=== PATIENT | female | born 1970 | race Caucasian/White ===

== ENCOUNTER 2017-09-13 19:54 | Emergency (ER) | payer BC, OTHER ==
[2017-09-13 20:16] VITALS: BP 122/77
--- NOTE | 2017-09-13 20:16 | UC ---
Skin Complaint HPI - HPI Summary HPI Summary: PT presents with painful rash to left flank. She tells me that for the last 2-3 days she has had a burning type pain on her left lower side and left flank. Last night she noticed some red blisters begin to appear in this region and they have gotten progressively worse since that time. She denies fever, chills, recent illness, bleeding or drainage from the site. - History of Current Complaint Chief Complaint: UCSkin Time Seen by Provider: 09/13/17 20:16 Stated Complaint: RASH Hx Obtained From: Patient Hx Last Menstrual Period: 09/05/2017 Onset/Duration: Sudden Onset Timing: Constant Onset Severity: Mild Current Severity: Mild Pain Intensity: 3 Pain Scale Used: 0-10 Numeric - Allergy/Home Medications Allergies/Adverse Reactions: Allergies Allergy/AdvReac Type Severity Reaction Status Date / Time No Known Allergies Allergy Verified 09/13/17 20:09 Home Medications: Home Medications Topiramate [Topamax] 75 mg PO QAM 09/13/17 [History Confirmed 09/13/17] Topiramate [Topamax] 100 mg PO QPM 09/13/17 [History Confirmed 09/13/17] Review of Systems Constitutional: Negative Skin: Rash - Left flank Respiratory: Negative Cardiovascular: Negative Gastrointestinal: Negative Genitourinary: Negative Neurovascular: Negative Musculoskeletal: Negative Neurological: Negative Psychological: Negative All Other Systems Reviewed And Are Negative: Yes PMH/Surg Hx/FS Hx/Imm Hx Previously Healthy: Yes - Surgical History Surgical History: None Surgery Procedure, Year, and Place: MASS REMOVED FROM BREAST HIGH INTO RIGHT UNDERARM 2014 - Family History Known Family History: Positive: None - Social History Occupation: Employed Full-time Lives: With Family Alcohol Use: None Substance Use Type: None Smoking Status (MU): Never Smoked Tobacco Physical Exam Triage Information Reviewed: Yes Appearance: Well-Appearing, No Pain Distress, Well-Nourished Vital Signs: Initial Vital Signs Temp 97.9 F 09/13/17 20:11 Pulse 71 09/13/17 20:11 Resp 18 09/13/17 20:11 BP 122/77 09/13/17 20:11 Pulse Ox 100 09/13/17 20:11 Vital Signs Reviewed: Yes Neck: Positive: Supple, Nontender, No Lymphadenopathy Respiratory: Positive: Lungs clear, Normal breath sounds, No respiratory distress, No accessory muscle use Cardiovascular: Positive: RRR, No Murmur, Pulses Normal Neurological: Positive: Alert Psychological: Positive: Age Appropriate Behavior Skin: Positive: Other - On the lower left midaxillary line and left flank there are numerous erythematous blister-like lesions that are TTP. These lesions appear to follow T12 or L1 dermatome and do not cross the midline. No drainage, bleeding, or streaking appreciated. Course/Dx - Course Course Of Treatment: Suspect shingles. Rx for valacyclovir and gabapentin. - Diagnoses Provider Diagnoses: Shingles left flank Discharge - Discharge Plan Condition: Stable Disposition: HOME Prescriptions: Gabapentin CAP(*) [Neurontin 100 mg CAP(*)] 100 mg PO TID #21 cap ValACYclovir (*) [Valtrex 1 GM(*)] 1 gm PO TID #21 tab Patient Education Materials: Shingles (ED) Referrals: Pamela Hernández MD [Primary Care Provider] - Additional Instructions: If you develop a fever, shortness of breath, chest pain, new or worsening symptoms - please call your PCP or go to the ED. Images Front/Back of Body, Lg (Mayes): 1 - lesions 2 - lesions
[2017-09-13] MEDS ORDERED: Acyclovir* 200 MG CAP PO ONE (20:34)
== END 2017-09-13 21:00 | disposition home or self-care (01) ==
LOC: UCEAST 19:54
DX: B02.9 Zoster without complications (principal)
CPT/HCPCS: 99212; A9270-GY; G0463

== ENCOUNTER 2018-01-27 20:58 | Emergency (ER) | payer BC, OTHER ==
[2018-01-27] MEDS ORDERED: Metoclopramide IV* 5 MG/ML 2 ML VIAL IV SLOW PU ONE (22:42)
[2018-01-27] MEDS ORDERED: diPHENhydraMINE IV* 50 MG/ML 1 ml VIAL (BENADRYL) IV ONE (22:42)
[2018-01-27] MEDS ORDERED: Morphine VIAL* 4 MG/ML VIAL (1 ml vial) IV ONE (22:42)
[2018-01-27] MEDS ORDERED: Dexamethasone IV* 4 MG/ML 1 ML (4 MG) IV SLOW PU ONE (22:43)
[2018-01-27] MEDS ORDERED: NS 0.9% 1000 ML* 1,000 ML IV ONE (22:43)
--- NOTE | 2018-01-28 00:23 | ED ---
Gris Alonzo Emily, scribed for Katherine Gee MD on 01/27/18 at 2229 . Headache - HPI Summary HPI Summary: This patient is a 47 year old F presenting to [facility] accompanied by mother with a chief complaint of diffuse migraine-like headache that began 9 days ago. The patient rates the pain 9/10 in severity. Pt reports that her symptoms were not alleviated by her usual medications. Patient reports nausea. Patient denies fever. Pt reports that she has a history of migraines and gets migraines that last this long about once a year. - History Of Current Complaint Chief Complaint: EDHeadache Stated Complaint: HEADACHE Time Seen by Provider: 01/27/18 22:22 Hx Obtained From: Patient Hx Last Menstrual Period: 09/05/2017 Onset/Duration: Sudden Onset, Started weeks ago, Still Present Initially Headache Was: Severe Currently Pain Is: Current Pain Scale(0-10)= - 9, Severe Timing: Constant Character: Migraine Aggravating Factor: Nothing Allevating Factors: Nothing Associated Signs And Symptoms: Nausea, Other (Noted In Comments) - Negative fever - Allergies/Home Medications Allergies/Adverse Reactions: Allergies Allergy/AdvReac Type Severity Reaction Status Date / Time No Known Allergies Allergy Verified 09/13/17 20:09 PMH/Surg Hx/FS Hx/Imm Hx Previously Healthy: No Endocrine/Hematology History: Denies: Hx Diabetes Cardiovascular History: Denies: Hx Hypertension, Hx Pacemaker/ICD History: Denies: Hx Renal Disease Sensory History: Denies: Hx Hearing Aid Neurological History: Reports: Hx Migraine Psychiatric History: Denies: Hx Panic Disorder - Cancer History Hx Chemotherapy: No Hx Radiation Therapy: No - Surgical History Surgery Procedure, Year, and Place: MASS REMOVED FROM BREAST HIGH INTO RIGHT UNDERARM 2014 Infectious Disease History: Yes Infectious Disease History: Denies: Traveled Outside the [place] in Last 30 Days - Family History Known Family History: Positive: Other - Breast CA - Social History Occupation: Employed Full-time Lives: With Family Alcohol Use: None Hx Substance Use: No Substance Use Type: Reports: None Hx Tobacco Use: No Smoking Status (MU): Never Smoked Tobacco Review of Systems Negative: Fever Positive: Nausea Positive: Headache All Other Systems Reviewed And Are Negative: Yes Physical Exam - Summary Physical Exam Summary: VITAL SIGNS: Reviewed. GENERAL: Patient is a well-developed and nourished female who is lying comfortable in the stretcher. Patient is not in any acute respiratory distress. HEAD AND FACE: No signs of trauma. No ecchymosis, hematomas or skull depressions. No sinus tenderness. EYES: PERRLA, EOMI x 2, No injected conjunctiva, no nystagmus. EARS: Hearing grossly intact. Ear canals and tympanic membranes are within normal limits. MOUTH: Oropharynx within normal limits. NECK: Supple, trachea is midline, no adenopathy, no JVD, no carotid bruit, no c- spine tenderness, neck with full ROM. CHEST: Symmetric, no tenderness at palpation LUNGS: Clear to auscultation bilaterally. No wheezing or crackles. CVS: Regular rate and rhythm, S1 and S2 present, no murmurs or gallops appreciated. ABDOMEN: Soft, non-tender. No signs of distention. No rebound no guarding, and no masses palpated. Bowel sounds are normal. EXTREMITIES: FROM in all major joints, no edema, no cyanosis or clubbing. NEURO: Alert and oriented x 3. No acute neurological deficits. Speech is normal and follows commands. SKIN: Dry and warm Triage Information Reviewed: Yes Vital Signs On Initial Exam: Initial Vitals Temp Pulse Resp BP Pulse Ox 98.7 F 60 16 155/83 100 01/27/18 21:22 01/27/18 21:22 01/27/18 21:22 01/27/18 21:22 01/27/18 21:22 Vital Signs Reviewed: Yes Diagnostics - Vital Signs Vital Signs Temp Pulse Resp BP Pulse Ox 01/27/18 21:22 98.7 F 60 16 155/83 100 - Laboratory Lab Statement: Any lab studies that have been ordered have been reviewed, and results considered in the medical decision making process. Re-Evaluation - Re-Evaluation First Eval Re-Evaluation Time: 23:50 Change: Improved Comment: Pt reports her nausea and headache have improved Headache Course/Dx - Course Course Of Treatment: This patient is a 47 year old F presenting to [facility] accompanied by mother with a chief complaint of diffuse migraine-like headache that began 9 days ago. Pt reports that she has a history of migraines and gets migraines that last this long about once a year. Pt did receive Toradol IM at urgent care 5 hours ago. In the ED course the patient was given Morphine, fluids , Reglan, Benadryl, and Decadron Patient will be discharged with follow up from PCP. The patient is agreeable with this plan. - Diagnoses Provider Diagnoses: Migraine Discharge - Sign-Out/Discharge Documenting (check all that apply): Discharge/Admit/Transfer - Discharge home - Discharge Plan Condition: Stable Disposition: HOME Patient Education Materials: Migraine Headache (ED) Referrals: Pamela Hernández MD [Primary Care Provider] - 3 Days Additional Instructions: RETURN TO THE EMERGENCY DEPARTMENT FOR NEW OR WORSENING SYMPTOMS The documentation as recorded by the Gris ro Emily accurately reflects the service I personally performed and the decisions made by Gerard mead Abdul, MD.
[2018-01-28 01:12] VITALS: BP 93/58
== END 2018-01-28 01:13 | disposition home or self-care (01) ==
LOC: ED 20:58
DX: G43.909 Migraine, unspecified, not intractable, without status migrainosus (principal); R11.0 Nausea; Z80.3 Family history of malignant neoplasm of breast
CPT/HCPCS: 96374; 96375; 99282; J1100; J1200; J2270; J2765

== ENCOUNTER 2018-11-04 18:19 | Emergency (ER) | payer BC ==
--- OUTSIDE RECORDS SUMMARY | 2018-11-04 18:37 | XMS REPORT | Continuity of Care Document ---
:1970 External Reference #:[id number] Author Name Brittny Fonseca Care Team Providers Name Role Phone Pamela Hernández MD Primary Care Physician Unavailable Payers Date Identification Numbers Payment Provider Subscriber Policy Number: [id number] [facility] [employer] PayID: [id number] [address] [place] [address] Advance Directives Description No Information Available Problems Date Description Provider Status Onset: 05/10/2017 Migraine without aura, not refractory Narendra Ochoa NP Active Onset: 07/29/2017 Superior glenoid labrum lesion of right Sandro Sanchez MD Active shoulder, subsequent encounter Onset: 07/14/2017 Disorder of shoulder Sandro Sanchez MD Active Family History Date Family Member(s) Observation Comments General Hypertension General Cancer Father due to Esophageal cancer at 64 () Mother Hypertension late onset Siblings 1 First Brother Migraine Social History Type Date Description Comments Sex Unknown Marital Status Lives With Family 2 kids - (2001), (2004) Occupation Marketing works for [employer] Right-handed ETOH Use Rarely consumes alcohol Tobacco Use Start: Unknown Patient has never smoked Smoking Status Reviewed: 11/03/18 Patient has never smoked Exercise Exercises sporadically Type/Frequency Allergies, Adverse Reactions, Alerts Description No Known Drug Allergies Medications Medication Date Status Form Strength Qnty SIG Indications Ordering Provider Aimovig 11/03 Active Solution 70mg/ml 1ml inject G43.009 oph Auto-Inje once a Tracy Pena ct month, sq Suprep Bowel 10/04 Active Solution 17.5-3.13 354ml Take Naveen Abdi Prep Kit /2018 -1.6GM/17 according MD Cayetano 7ML to the instructio ns you received the afternoon before and morning of your procedure. Triamcinolone 09/19 Active Cream 0.1% 30gm apply thin R21 Pamela Acet film twice Luisa Hernández.DMary Carmen daily Riboflavin 07/17 Active Tablets 400mg 100ta 1 by mouth G43.009 bs every day Tracy Pena Medrol 07/17 Active TBPK 4mg 21uni take as G4 ts directed Tracy Pena Naftin 07/11 Active Cream 2% apply to affected Edgar, M.D. area bid as needed Flaxseed Oil Active daily Topiramate Active Tablets 25mg 630ta 3 tabs in bs the in the Edgar M.DMary Carmen morning & 4 tabs in the at night Cyclobenzaprine Active Tablets 10mg 90tab one by Pamela HCL s mouth at Luisa Hernández.DMary Carmen bedtime Ondansetron HCL Active Tablets 4mg 30tab one by Pamela / s mouth Edgar MMary CarmenDMary Carmen three times daily as needed for nausea Butalbital/Aceta Active Capsules 50-325-40 30cap 1 tablet Narendra Ochoa, minophen/Caffein / mg s three ASSISTANT DEPARTMENT MANAGER e times a day as needed migraine max 2 days/week Nystatin-Triamci Active Ointment 222822-3. 30gm apply to Pamela nolone 1Unit/GM- affected Edgar M.D. % area twice a day Doxycycline Active Capsules 100mg once a day DR Amoxicillin Active Capsules 250mg 1 by mouth three times a day Doxycycline Active Capsules 50mg Sathya Cassidyate MD Ricardo Fluconazole 07/06 Hx Tablets 150mg 2tabs one by B37.3 Narendra Ochoa mouth november ASSISTANT DEPARTMENT MANAGER - repeat in 07/13 3 days needed Medications Administered in Office Medication Date Status Form Strength Qnty SIG Indications Ordering Provider Triamcinolone 07/14/ Administered Injection Zaneb (Kenalog) 2016 MD Daniel Immunizations CPT Code Status Date Vaccine Reaction Lot # [id number] Given 05/05/2017 Influenza Virus Vaccine, No immediate [id number] Quadrivalent, Split, reaction...jh Preservative Free Vital Signs Date Vital Result Comment 11/03/2018 8:32am Height 64 inches 5'4" Weight 142.00 lb Heart Rate 68 /min BP Systolic 110 mmHg BP Diastolic 72 mmHg BMI (Body Mass Index) 24.4 kg/m2 09/19/2018 4:37pm Height 64 inches 5'4" Weight 140.00 lb Heart Rate 63 /min BP Systolic Sitting 110 mmHg BP Diastolic Sitting 72 mmHg O2 % BldC Oximetry 98 % BMI (Body Mass Index) 24.0 kg/m2 07/17/2018 11:16am Height 64 inches 5'4" Weight 140.00 lb Heart Rate 64 /min BP Systolic Sitting 98 mmHg BP Diastolic Sitting 58 mmHg Respiratory Rate 16 /min BMI (Body Mass Index) 24.0 kg/m2 07/06/2018 1:50pm Height 65 inches 5'5" Weight 142.00 lb Heart Rate 74 /min BP Systolic 105 mmHg BP Diastolic 63 mmHg O2 % BldC Oximetry 99 % BMI (Body Mass Index) 23.6 kg/m2 07/29/2017 10:31am Height 65 inches 5'5" Heart Rate 70 /min BP Systolic Sitting 122 mmHg BP Diastolic Sitting 70 mmHg Body Temperature 98.1 F Pain Level 0 07/14/2017 7:59am Height 65 inches 5'5" Weight 139.00 lb BP Systolic 122 mmHg BP Diastolic 72 mmHg Respiratory Rate 18 /min Pain Level 8 BMI (Body Mass Index) 23.1 kg/m2 07/11/2017 4:00pm Height 65 inches 5'5" Weight 139.75 lb Heart Rate 74 /min BP Systolic 102 mmHg BP Diastolic 50 mmHg O2 % BldC Oximetry 99 % BMI (Body Mass Index) 23.3 kg/m2 05/05/2017 11:26am Height 65 inches 5'5" Weight 139.00 lb Heart Rate 54 /min BP Systolic Sitting 118 mmHg BP Diastolic Sitting 78 mmHg O2 % BldC Oximetry 99 % BMI (Body Mass Index) 23.1 kg/m2 Results Test Date Facility Test Result H/L Range Note Ua Routine 07/06/2018 [facility] Ua Specific [place] 1.000 Ua PH 7 Ua Color light yellow Ua Appera cloudy Ua WBC negative Ua Protein negative Ua Glucose normal Ua Ketones negative Ua Bilirubin negative Ua Urobilinogen normal Ua Nitrite negative Ua Occult Blood trace CBC Auto Diff 07/06/2018 [facility] White Blood 5.6 10^3/uL N 3.5-10.[address] [place] [address] [phone] Red Blood Count 4.51 10^6/uL N 4.00-5.40 Hemoglobin 13.8 g/dL N 12.0-16.0 Hematocrit 41 % N 35-47 Mean Corpuscular Volume 92 fL N 80-97 Mean Corpuscular Hemoglobin 31 pg N 27-31 Mean Corpuscular HGB Conc 33 g/dL N 31-36 Red Cell Distribution Width 13 % N 10.5-15 Platelet Count 145 10^3/uL Low 150-450 Mean Platelet Volume 8.8 fL N 7.4-10.4 Abs Neutrophils 3.5 10^3/uL N 1.5-7.7 Abs Lymphocytes 1.4 10^3/uL N 1.0-4.8 Abs Monocytes 0.5 10^3/uL N 0-0.8 Abs Eosinophils 0.1 10^3/uL N 0-0.6 Abs Basophils 0 10^3/uL N 0-0.2 Abs Nucleated RBC 0 10^3/uL Granulocyte % 63.1 % Lymphocyte % 25.8 % Monocyte % 9.2 % Eosinophil % 1.2 % Basophil % 0.7 % Nucleated Red Blood Cells % 0 Comp Metabolic Panel 07/06/2018 [facility] Sodium 139 mmol/L N 135-[address] [place] [address] [phone] Potassium 4.8 mmol/L N 3.5-5.0 Chloride 110 mmol/L N 101-111 Co2 Carbon Dioxide 25 mmol/L N 22-32 Anion Gap 4 mmol/L N 2-11 Glucose 97 mg/dL N 70-100 Blood Urea Nitrogen 18 mg/dL N 6-24 Creatinine 0.75 mg/dL N 0.51-0.95 BUN/Creatinine Ratio 24.0 High 8-20 Calcium 8.9 mg/dL N 8.6-10.3 Total Protein 6.5 g/dL N 6.4-8.9 Albumin 4.3 g/dL N 3.2-5.2 Globulin 2.2 g/dL N 2-4 Albumin/Globulin Ratio 2.0 N 1-3 Total Bilirubin 0.30 mg/dL N 0.2-1.0 Alkaline Phosphatase 36 U/L N 34-104 Alt 16 U/L N 7-52 Ast 21 U/L N 13-39 Egfr Non- 82.1 >60 Egfr 99.4 >60 1 Laboratory test finding 07/06/2018 [facility] Lipase 48 U/L N 11.0-82.[address] [place] [address] [phone] TSH (Thyroid Stim Horm) 2.73 mcIU/mL N 0.34-5.60 Vitamin B12 250 pg/mL N 180-914 2 Urine Culture And 07/06/2018 [facility] Urine Culture SEE RESULT 3, [address] [place] [address] [phone] Laboratory test 07/11/2017 [facility] Cytology SEE RESULT [address] [place] [address] [phone] Lipid Profile 06/27/2017 [facility] Triglycerides 81 mg/dL 6 (Trig/Chol/HDL) [address] [place] [address] [phone] Cholesterol 175 mg/dL 7 HDL Cholesterol 55.5 mg/dL 8 LDL Cholesterol 103 mg/dL 9 Laboratory test finding 06/27/2017 [facility] Glucose 84 mg/dL N 70-[address] [place] [address] [phone] 1 Because ethnic data is not always readily available, this report includes an eGFR for both -Americans and non- Americans. The National Kidney Disease Education Program (NKDEP) does not endorse the use of the MDRD equation for patients that are not between the ages of 18 and 70, are , have extremes of body size, muscle mass, or nutritional status, or are non- or non-. According to the National Kidney Foundation, irrespective of diagnosis, the stage of the disease is based on the level of kidney function: Stage Description GFR(mL/min/1.73 m(2)) 1 Kidney damage with normal or decreased GFR 90 2 Kidney damage with mild decrease in GFR 60-89 3 Moderate decrease in GFR 30-59 4 Severe decrease in GFR 15-29 5 Kidney failure <15 (or dialysis) 2 Normal Range 180 to 914 Indeterminate Range 145 to 180 Deficient Range <145 3 [id number] 4 SEE RESULT BELOW Name: HUMPHREY BANKS : [address]: Narendra Ochoa NP Acct: [id number] Unit: [id number] AGE: 47 Location: [facility] Re07/06/18 SEX: F Status: REG REF SPEC: [id number] TAYLOR: 07/06/18-[address]: Narendra Ochoa NP REQ: [id number] RECD: 07/06/18 STATUS: COMP _ SOURCE: URINE SPDESC: ORDERED: Urine Culture COMMENTS: [id number] QUERIES: Urine Source: Random Procedure Result Reported Site Urine Culture Final 07/07/18- 1608 ML No Growth (<1,000 CFU/mL) * ML - Main Lab . END OF REPORT DEPARTMENT OF PATHOLOGY, [address] [place] [address] Will Willard M.D. Director [facility] # [id number] 5 SEE RESULT BELOW Name: HUMPHREY BANKS : [address]: Pamela Hernández MD Acct: [id number] Unit: [id number] AGE: 46 Location: [facility] Re07/11/17 SEX: F Status: REG REF SPEC: [id number] TAYLOR: 07/11/17-[address] [facility] [address]: Pamela Hernández MD REQ: [id number] RECD: 07/11/17 STATUS: SOUT _ ORDERED: TP IMAGE ANAL, HPV/Thin Prep, HPV 16/18 GENE COMMENTS: [id number] Negative for Intraepithelial lesion or Malignancy A. Ectocervical/Endocervical Specimen Adequacy: Satisfactory of evaluation Transformation zone component identified Patient Information: HPV: High risk HPV RNA testing regardless of pap results. HPV 16/18 Genotype Reflex Actual Specimen Date: 07/11/17 Last Menstrual Date: 06/30/17 Spec Date if unknown: last fall ?: N Post Menopausal?: N Hysterectomy?: N Previous Abnormal Pap Smears?:Y If Yes, enter Diagnosis: pap was obtained in [place], patient was told to repeat in one year. Date Time Test Result Flag (u) Normal Range 07/11/17 1642 @ HPV RNA RFLX GE Negative Negative @ @ The high-risk HPV types detected by the assay include: 16, @ 18, 31, 33, 35, 39, 45, 51, 52, 56, 58, 59, 66, and 68. Signed (signature on file) SHANI Shay(ASCP) 07/13 0957 This Pap test was evaluated with the assistance of the Vacatiap Test Imaging System. Due to cytologic findings at the returns clerk microscope, comprehensive manual rescreening by a Peanut Vendor may be required. The Pap Smear is a screening test designed to aid in the detection of premalignant and malignant conditions of the uterine cervix. It is not a diagnostic procedure and should not be used as the sole means of detecting cervical cancer. Both false- positive and false- negative reports do occur. Depending on your risk status, a Pap smear should be obtained and evaluated every 1-3 years. END OF REPORT * ML=Testing performed at Main Lab DEPARTMENT OF PATHOLOGY, [address] [place] [address] Will Willard M.D. Director [facility] # [id number] 6 Desirable: <150 Borderline High: 150-199 High: 200-499 Very High: >500 7 Desirable: <200 Borderline High: 200-239 High: >239 8 Low: <40 Desirable: 40-60 High: >60 9 Desirable: <100 Near Optimal: 100-129 Borderline High: 130-159 High: 160-189 Very High: >189 10 FASTING 10 HOUR Procedures Date Code Description Status 10/03/2018 47974 ECHO Transthoracic, Real-Time 2D With Doppler And Color Completed Flow 10/03/2018 51055 ECHO Transthoracic, Real-Time 2D With Doppler And Color Completed Flow 09/27/2017 [id number] Mammogram Completed 07/14/2017 93073 Inject/Drain Joint/Bursa Major W/O US Completed Encounters Type Date Location Provider Dx Diagnosis Office Visit 09/19/2018 [place] [facility] Pamela Hernández, Z00.00 Encntr for 4:20p Medicine - M.D. general adult [facility] medical exam w/o abnormal findings Z12.31 Encntr screen mammogram for malignant neoplasm of breast Z12.11 Encounter for screening for malignant neoplasm of colon Z79.899 Other mcc (current) drug therapy R21 Rash and other nonspecific skin eruption R01.1 Cardiac murmur, unspecified Office Visit 07/17/2018 [place] Jaiden G43.009 Migraine w/o 11:15a Neurologic Tracy Pena aura, not [facility] intractable, w/o status migrainosus Office Visit 07/06/2018 [facility] Internal Narendra Don, ASSISTANT DEPARTMENT MANAGER B37.3 Candidiasis of 1:40p Medicine vulva and vagina M54.5 Low back pain R10.9 Unspecified abdominal pain L29.8 Other pruritus N77.1 Vaginitis, vulvitis and vulvovaginitis in dis classd elswhr Office Visit 07/29/2017 10:00a Orthopedic Sandro Sanchez M75.41 Impingement Services Of syndrome of right C.M.A. shoulder S43.431D Superior glenoid labrum lesion of right shoulder, subs S46.011D Strain of musc/tend the rotator cuff of right shoulder, subs M75.21 Bicipital tendinitis, right shoulder Office Visit 07/14/2017 8:00a Orthopedic Sandro Sanchez M75.41 Impingement Services Of syndrome of right C.M.A. shoulder Office Visit 07/11/2017 3:40p [facility] Internal Pamela Z12.4 Encounter for Obed Hernández M.D. screening for malignant neoplasm of cervix Z12.31 Encntr screen mammogram for malignant neoplasm of breast M25.511 Pain in right shoulder Office Visit 05/05/2017 11:00a [facility] Internal Narendra Ochoa G43.009 Migraine w /o aura, Medicine ASSISTANT DEPARTMENT MANAGER not intractable, w/o status migrainosus M79.621 Pain in right upper arm Z23 Encounter for immunization Plan of Treatment Future Appointment(s):02/15/2019 1:30 pm - Jaiden Pena M.D. at [place] [facility]12/13/2018 8:30 am - Naveen Monteiro MD at [facility] Tsdyowbnyghcbcbr20/01/2019 1:00 pm - Antoni Monroy DO FACC at [place] [facility]11/03/2018 - Jaiden Pena M.D.G43.009 Migraine without aura, not intractable, without status migraNew Medication:Aimovig 70 mg/ml - inject once a month, sqFollow up:Follow up in 3 months
[2018-11-04 18:52] LABS: Urine Appearance Cloudy; Urine Bacteria 1+ (Absent); Urine Bilirubin Negative (Negative); Urine Blood 1+ (Negative); Urine Color Amber; Urine Glucose Negative (Negative); Urine Ketones 2+ (Negative); Urine Nitrite Negative (Negative); Urine Protein 1+(30 mg/dL) (Negative); Urine Red Blood Cell 3+(>10/hpf) (Absent); Urine Specific Gravity 1.027 (1.010-1.030); Urine Squamous Epithelial Cell Present (Absent); Urine Urobilinogen Negative (Negative); Urine White Blood Cell 1+(6-10/hpf) (Absent)
[2018-11-04 21:30] LABS: Hematocrit 43 % (33-41); Hemoglobin 14.3 g/dL (12.0-16.0); Mean Corpuscular HGB Conc 33 g/dL (31-36); Mean Corpuscular Hemoglobin 30 pg (27-31); Mean Corpuscular Volume 91 fL (80-97); Mean Platelet Volume 8.2 fL (7.4-10.4); Platelet Count 164 10^3/uL (150-450); Red Blood Count 4.75 10^6 /uL (3.70-4.87); Red Cell Distribution Width 13 % (10.5-15); White Blood Count 11.3 10^3/uL (3.5-10.8)
[2018-11-04 21:48] LABS: ALT 14 U/L (7-52); AST 22 U/L (13-39); Albumin 4.5 g/dL (3.2-5.2); Albumin/Globulin Ratio 1.9 (1-3); Alkaline Phosphatase 33 U/L (34-104); BUN/Creatinine Ratio 19.5 (8-20); Blood Urea Nitrogen 22 mg/dL (6-24); C Reactive Protein 1.22 mg/L (<8.01); CO2 Carbon Dioxide 16 mmol/L (22-32); Calcium 8.8 mg/dL (8.6-10.3); EGFR African American 61.7 (>60); Globulin 2.4 g/dL (2-4); Glucose 96 mg/dL (70-100); Sodium 136 mmol/L (135-145); Total Protein 6.9 g/dL (6.4-8.9)
[2018-11-04 21:50] LABS: Lymphocytes % 12 %; Monocytes % 8 %; Neutrophil % 80 %
[2018-11-04 21:52] LABS: ABS Basophils 0 10^3/ul (0-0.2); ABS Eosinophils 0 10^3/ul (0-0.6); ABS Lymphocytes 1.3 10^3/ul (1.0-4.8); ABS Neutrophils 8.9 10^3/ul (1.5-7.7); ABS Nucleated RBC 0 10^3/ul; Nucleated Red Blood Cells % 0
[2018-11-04 21:54] LABS: HCG Pregnancy < 0.60 mIU/mL
[2018-11-04 21:58] LABS: Anion Gap 8 mmol/L (2-11); Chloride 112 mmol/L (101-111)
--- NOTE | 2018-11-04 21:58 | ED ---
Abdominal Pain/Female - HPI Summary HPI Summary: This patient is a 48 year old female presenting to [facility] with a chief complaint of left-sided flank and LLQ pain since an hour ago. She describes the pain as a constant pain that flares up in severity intermittently. She reports nausea. She rates her pain 7/10 in severity. - History of Current Complaint Chief Complaint: EDFlankPain Stated Complaint: MAJOR PAIN ON LEFT SIDE PER PT Time Seen by Provider: 11/04/18 21:44 Hx Obtained From: Patient Hx Last Menstrual Period: 09/05/2017 Onset/Duration: Lasting Hours Timing: Constant Severity Initially: Moderate Severity Currently: Moderate Pain Intensity: 7 Pain Scale Used: 0-10 Numeric Location: Discrete At: LLQ Radiates to: Flank Allergies/Adverse Reactions: Allergies Allergy/AdvReac Type Severity Reaction Status Date / Time No Known Allergies Allergy Verified 11/04/18 18:22 PMH/Surg Hx/FS Hx/Imm Hx Endocrine/Hematology History: Denies: Hx Diabetes Cardiovascular History: Denies: Hx Hypertension, Hx Pacemaker/ICD History: Denies: Hx Renal Disease Sensory History: Denies: Hx Hearing Aid Neurological History: Reports: Hx Migraine Psychiatric History: Denies: Hx Panic Disorder - Cancer History Hx Chemotherapy: No Hx Radiation Therapy: No - Surgical History Surgery Procedure, Year, and Place: MASS REMOVED FROM BREAST HIGH INTO RIGHT UNDERARM 2014 Infectious Disease History: No Infectious Disease History: Denies: Traveled Outside the [place] in Last 30 Days - Family History Known Family History: Positive: Other - Breast CA - Social History Alcohol Use: None Hx Substance Use: No Substance Use Type: Reports: None Hx Tobacco Use: No Smoking Status (MU): Never Smoked Tobacco Review of Systems Negative: Fever Positive: Abdominal Pain, Nausea All Other Systems Reviewed And Are Negative: Yes Physical Exam - Summary Physical Exam Summary: VITAL SIGNS: Reviewed. GENERAL: Patient is a well-developed and nourished FEMALE who is lying comfortable in the stretcher. Patient is not in any acute respiratory distress. HEAD AND FACE: No signs of trauma. No ecchymosis, hematomas or skull depressions. No sinus tenderness. EYES: PERRLA, EOMI x 2, No injected conjunctiva, no nystagmus. EARS: Hearing grossly intact. Ear canals and tympanic membranes are within normal limits. MOUTH: Oropharynx within normal limits. NECK: Supple, trachea is midline, no adenopathy, no JVD, no carotid bruit, no c- spine tenderness, neck with full ROM. CHEST: Symmetric, no tenderness at palpation LUNGS: Clear to auscultation bilaterally. No wheezing or crackles. CVS: Regular rate and rhythm, S1 and S2 present, no murmurs or gallops appreciated. ABDOMEN: Soft, LLQ tenderness. No signs of distention. No rebound no guarding, and no masses palpated. Bowel sounds are normal. EXTREMITIES: FROM in all major joints, no edema, no cyanosis or clubbing. NEURO: Alert and oriented x 3. No acute neurological deficits. Speech is normal and follows commands. SKIN: Dry and warm Triage Information Reviewed: Yes Vital Signs On Initial Exam: Initial Vitals Temp Pulse Resp BP Pulse Ox 98.2 F 87 14 134/76 95 11/04/18 18:23 11/04/18 18:23 11/04/18 18:23 11/04/18 18:23 11/04/18 18:23 Vital Signs Reviewed: Yes Diagnostics - Vital Signs Vital Signs Temp Pulse Resp BP Pulse Ox 11/04/18 20:31 97.7 F 80 16 149/90 100 11/04/18 18:23 98.2 F 87 14 134/76 95 - Laboratory Lab Results: Lab Results 11/04/18 11/04/18 11/04/18 Range/Units 18:37 21:23 21:23 WBC 11.3 H (3.5-10.8) 10^3/uL RBC 4.75 (3.70-4.87) 10^6 /uL Hgb 14.3 (12.0-16.0) g/dL Hct 43 H (33-41) % MCV 91 (80-97) fL MCH 30 (27-31) pg MCHC 33 (31-36) g/dL RDW 13 (10.5-15) % Plt Count 164 (150-450) 10^3/uL MPV 8.2 (7.4-10.4) fL Neut % (Auto) Not Reportable Lymph % (Auto) Not Reportable [place] % (Auto) Not Reportable Eos % (Auto) Not Reportable Baso % (Auto) Not Reportable Absolute Neuts (auto) 8.9 H (1.5-7.7) 10^3/ul Absolute Lymphs (auto) 1.3 (1.0-4.8) 10^3/ul Absolute Monos (auto) 1.0 H (0-0.8) 10^3/ul Absolute Eos (auto) 0 (0-0.6) 10^3/ul Absolute Basos (auto) 0 (0-0.2) 10^3/ul Absolute Nucleated RBC 0 10^3/ul Neutrophils % 80 % Lymphocytes % 12 % Monocytes % 8 % Nucleated RBC % 0 Normal RBC Morphology Normal (Normal) Hem Pathologist Commnt Pending Sodium 136 (135-145) mmol/L Potassium 4.0 (3.5-5.0) mmol/L Chloride Pending Carbon Dioxide 16 L (22-32) mmol/L Anion Gap Pending BUN 22 (6-24) mg/dL Creatinine 1.13 H (0.51-0.95) mg/dL Est GFR ( Amer) 61.7 (>60) Est GFR (Non-Af Amer) 51.0 (>60) BUN/Creatinine Ratio 19.5 (8-20) Glucose 96 (70-100) mg/dL Lactic Acid (0.5-2.0) mmol/L Calcium 8.8 (8.6-10.3) mg/dL Total Bilirubin 0.60 (0.2-1.0) mg/dL AST 22 (13-39) U/L ALT 14 (7-52) U/L Alkaline Phosphatase 33 L (34-104) U/L C-Reactive Protein 1.22 (<8.01) mg/L Total Protein 6.9 (6.4-8.9) g/dL Albumin 4.5 (3.2-5.2) g/dL Globulin 2.4 (2-4) g/dL Albumin/Globulin Ratio 1.9 (1-3) Beta HCG, Quant < 0.60 mIU/mL Urine Color Ana Urine Appearance Cloudy Urine pH 5.0 (5-9) Ur Specific [place] 1.027 (1.010-1.030) Urine Protein 1+(30 mg/dl) A (Negative) Urine Ketones 2+ A (Negative) Urine Blood 1+ A (Negative) Urine Nitrate Negative (Negative) Urine Bilirubin Negative (Negative) Urine Urobilinogen Negative (Negative) Ur Leukocyte Esterase Negative (Negative) Urine WBC (Auto) 1+(6-10/hpf) A (Absent) Urine RBC (Auto) 3+(>10/hpf) A (Absent) Ur Squamous Epith Cells Present A (Absent) Urine Bacteria 1+ A (Absent) Urine Glucose Negative (Negative) 11/04/18 Range/Units 21:23 WBC (3.5-10.8) 10^3/uL RBC (3.70-4.87) 10^6 /uL Hgb (12.0-16.0) g/dL Hct (33-41) % MCV (80-97) fL MCH (27-31) pg MCHC (31-36) g/dL RDW (10.5-15) % Plt Count (150-450) 10^3/uL MPV (7.4-10.4) fL Neut % (Auto) Lymph % (Auto) J[place]uld % (Auto) Eos % (Auto) Baso % (Auto) Absolute Neuts (auto) (1.5-7.7) 10^3/ul Absolute Lymphs (auto) (1.0-4.8) 10^3/ul Absolute Monos (auto) (0-0.8) 10^3/ul Absolute Eos (auto) (0-0.6) 10^3/ul Absolute Basos (auto) (0-0.2) 10^3/ul Absolute Nucleated RBC 10^3/ul Neutrophils % % Lymphocytes % % Monocytes % % Nucleated RBC % Normal RBC Morphology (Normal) Hem Pathologist Commnt Sodium (135-145) mmol/L Potassium (3.5-5.0) mmol/L Chloride Carbon Dioxide (22-32) mmol/L Anion Gap BUN (6-24) mg/dL Creatinine (0.51-0.95) mg/dL Est GFR ( Amer) (>60) Est GFR (Non-Af Amer) (>60) BUN/Creatinine Ratio (8-20) Glucose (70-100) mg/dL Lactic Acid 0.9 (0.5-2.0) mmol/L Calcium (8.6-10.3) mg/dL Total Bilirubin (0.2-1.0) mg/dL AST (13-39) U/L ALT (7-52) U/L Alkaline Phosphatase (34-104) U/L C-Reactive Protein (<8.01) mg/L Total Protein (6.4-8.9) g/dL Albumin (3.2-5.2) g/dL Globulin (2-4) g/dL Albumin/Globulin Ratio (1-3) Beta HCG, Quant mIU/mL Urine Color Urine Appearance Urine pH (5-9) Ur Specific Sewell (1.010-1.030) Urine Protein (Negative) Urine Ketones (Negative) Urine Blood (Negative) Urine Nitrate (Negative) Urine Bilirubin (Negative) Urine Urobilinogen (Negative) Ur Leukocyte Esterase (Negative) Urine WBC (Auto) (Absent) Urine RBC (Auto) (Absent) Ur Squamous Epith Cells (Absent) Urine Bacteria (Absent) Urine Glucose (Negative) Result Diagrams: 11/04/18 21:23 11/04/18 21:23 Lab Statement: Any lab studies that have been ordered have been reviewed, and results considered in the medical decision making process. - CT Abd/Pel CT Interpretation Completed By: Radiologist Summary of CT Findings: Tehre is mild left hydronephrosis and left hydroureter and mild assymetric left perinephric fat stranding but no vidisble obstructing calculus, cannot exlude a recently passed calculus but is no longer present. There is additional nonobstructive bilateral nephrolithiasis. Re-Evaluation - Re-Evaluation First Eval Re-Evaluation Time: 00:18 Change: Improved Comment: Patient feels better, denies vomiting or fever. Abdominal Pain Fem Course/Dx - Course Course Of Treatment: This patient is a 48 year old female presenting to [facility] with a chief complaint of left-sided flank and LLQ pain since an hour ago. Labs and Abd/Pel CT were remarkable for UTI and renal colic. The patient will be discharged with instructions. She is agreeable with this plan. - Diagnoses Provider Diagnoses: UTI (urinary tract infection), Renal colic Discharge - Sign-Out/Discharge Documenting (check all that apply): Patient Departure - Discharge Patient Received Moderate/Deep Sedation with Procedure: No - Discharge Plan Condition: Stable Disposition: HOME Prescriptions: Levofloxacin TAB* [Levaquin TAB*] 500 mg PO DAILY #7 tab Patient Education Materials: Urinary Tract Infection in Women (ED), Renal Colic (ED) Referrals: Pamela Hernández MD [Primary Care Provider] - Additional Instructions: Return to ED with any new or worsening symptoms. - Attestation Statements Document Initiated by Scribe: Yes Documenting Scribe: [place] Provider For Whom Scribe is Documenting (Include Credential): Katherine Gee MD Scribe Attestation: IWayne, scribed for Katherine Gee MD on 11/05/18 at 0023. Status of Scribe Document: Ready
[2018-11-04] MEDS ORDERED: Acetaminophen TAB* 325 MG PO ONE (21:59)
[2018-11-04] MEDS ORDERED: NS 0.9% 1000 ML** 1,000 ML IV.FLUID IV ONE (21:59)
[2018-11-04] MEDS ORDERED: Ketorolac INJ* 15 MG/ML 1 ML VIAL IV ONE (21:59)
[2018-11-04] MEDS ORDERED: Levofloxacin 750 MG IVPREMIX(* 750 MG/150 ML BAG IVPB ONE (22:00)
[2018-11-05] MEDS ORDERED: Levofloxacin TAB* 500 MG PO ONE (00:18)
[2018-11-05 01:02] VITALS: BP 118/76
== END 2018-11-05 01:00 | disposition home or self-care (01) ==
LOC: ED 18:19
DX: N39.0 Urinary tract infection, site not specified (principal); N23 Unspecified renal colic; N13.30 Unspecified hydronephrosis; N13.4 Hydroureter
CPT/HCPCS: 36415; 74176; 80053; 81003; 81015; 83605; 84702; 85025; 85060; 86140; 87086; 99284; A9270-GY; J1885